=== PATIENT | female | born 1955 | race Asian ===

== ENCOUNTER 2016-12-18 15:38 | Emergency (ER) | payer MEDICAID, OTHER ==
[~2016-12-18] VITALS: Ht 152.4 cm; Wt 52.2 kg
[2016-12-18 16:05] VITALS: BP 157/94
--- NOTE | 2016-12-18 16:22 | PHYS DOC ---
Past Medical History Past Medical History: No Pertinent History Past Surgical History: No Surgical History Alcohol Use: None Drug Use: None Adult General Chief Complaint Chief Complaint: SKIN RASH/ABSCESS HPI HPI Patient is a 61 year old female who presents today with a pruritic rash that began 3 days ago. Patient denies any known cause of the rash. Review of Systems Review of Systems Constitutional: Denies fever or chills [] Eyes: Denies change in visual acuity, redness, or eye pain [] HENT: Denies nasal congestion or sore throat [] Musculoskeletal: Denies back pain or joint pain [] Integument: rash Neurologic: Denies headache, focal weakness or sensory changes [] Endocrine: Denies polyuria or polydipsia [] Allergies Allergies Allergies Coded Allergies Type Severity Reaction Last Updated Verified No Known Drug Allergies 12/18/16 No Physical Exam Physical Exam Constitutional: Well developed, well nourished, no acute distress, non-toxic appearance. [] HENT: Normocephalic, atraumatic, bilateral external ears normal, oropharynx moist, no oral exudates, nose normal. [] Skin: Patient has scattered areas of mild erythematous macular rash on her face right buttock and exterior vaginal area. Back: No tenderness, no CVA tenderness. [] Extremities: No tenderness, no cyanosis, no clubbing, ROM intact, no edema. [] Neurologic: Alert and oriented X 3, normal motor function, normal sensory function, no focal deficits noted. [] Psychologic: Affect normal, judgement normal, mood normal. [] Current Patient Data Vital Signs Vital Signs Date Time Temp Pulse Resp B/P (MAP) Pulse Ox O2 Delivery O2 Flow Rate FiO2 12/18/16 16:05 97.7 74 16 100 Room Air 97.7 EKG EKG [] Radiology/Procedures Radiology/Procedures [] Course & Med Decision Making Course & Med Decision Making Pertinent Labs and Imaging studies reviewed. (See chart for details) Patient has contact dermatitis rash from unknown cause, the rash is on her face buttocks and vaginal area. Given a prescription for triamcinolone cream, Atarax , and prednisone. F/u with helminthologist which we provided. Kevyn Disclaimer Kevyn Disclaimer This electronic medical record was generated, in whole or in part, using a voice recognition dictation system. Departure Departure Impression: Primary Impression: Contact dermatitis Disposition: 01 HOME, SELF-CARE Condition: STABLE Referrals: AYLA AVILA (PCP) follow up in 2 weeks RICHARD SANCHEZ MD follow up in 2 weeks Patient Instructions: Contact Dermatitis, [id number] Additional Instructions: You were seen for contact dermatitis rash from unknown cause. Use the medication provided as prescribed. Follow-up with the helminthologist with the provided helminthologist in 2 weeks. Scripts Hydroxyzine Hcl (HYDROXYZINE HCL) 25 Mg Tablet 1 TAB PO TID, #30 TAB Prov: AN GONZALES APRN 12/18/16 Prednisone (PREDNISONE) 10 Mg Tablet 10 MG PO UD for PREDNISONE TAPER, #39 TAB 0 Refills Take 3 tablets by mouth twice a day for 3 days, then take 2 tablets by mouth twice a day for 3 days, then take 1 tablet by mouth twice a day for 3 days, then take 1 tablet by mouth daily x 3 days, then stop. Prov: AN GONZALES APRN 12/18/16 Triamcinolone Acetonide (TRIAMCINOLONE ACETONIDE 0.1% OINT) 15 Gm Oint...g. 1 RAND TP BID for WOUND CARE, #1 TUBE Prov: AN GONZALES APRN 12/18/16 Problem Qualifiers Primary Impression: Contact dermatitis Contact dermatitis type: unspecified Contact dermatitis trigger: unspecified trigger Qualified Codes: L25.9 - Unspecified contact dermatitis, unspecified cause AN GONZALES APRN Dec 18, 2016 16:22
[2016-12-18] MEDS ORDERED: TRIA15OI TP (16:26)
[2016-12-18] MEDS ORDERED: HYDR25TA PO (16:26)
[2016-12-18] MEDS ORDERED: PRED-220 PO (16:26)
== END 2016-12-18 16:57 | disposition home or self-care (01) ==
LOC: ER 15:38
DX: L25.9 Unspecified contact dermatitis, unspecified cause (principal)
CPT/HCPCS: 99283

== ENCOUNTER 2017-01-29 16:36 | Observation (INO) | payer OTHER ==
[~2017-01-29] VITALS: Ht 144.8 cm; Wt 42.2 kg
[~2017-01-29 16:36] MED LIST: HYDR25TA PO; PRED-220 PO; TRIA15OI TP
[2017-01-29] MEDS ORDERED: MECLIZINE HCL 12.5 MG TABLET. PO ONE (17:00)
[2017-01-29] MEDS ORDERED: IV NORMAL SALINE 500ML BAG 500 ML IV ONE (17:00)
[2017-01-29 17:13] LABS: BASO # 0.1 x10^3/uL (0.0-0.2); BASO % 1 % (0-3); EOS % 1 % (0-3); HEMOGLOBIN 15.2 g/dL (12.0-15.5); LYMPH # 2.4 x10^3/uL (1.0-4.8); LYMPH % 22 % (24-48); MEAN CORPUSCULAR HEMOGLOBIN 29 pg (25-35); MEAN CORPUSCULAR HGB CONC 34 g/dL (31-37); MEAN CORPUSCULAR VOLUME 85 fL (79-100); MONO % 5 % (0-9); NEUT % 72 % (31-73); PLATELET COUNT 262 x10^3/uL (140-400); RED BLOOD COUNT 5.31 x10^6/uL (3.50-5.40); RED CELL DISTRIBUTION WIDTH 12.7 % (11.5-14.5)
[2017-01-29 17:36] LABS: CALCIUM 9.6 mg/dL (8.5-10.1); CREATININE 0.8 mg/dL (0.6-1.0); GFR 73.2; MAGNESIUM 2.2 mg/dL (1.8-2.4); TOTAL BILIRUBIN 0.3 mg/dL (0.2-1.0)
--- NOTE | 2017-01-29 17:39 | RAD ---
EXAM: Head CT without contrast. HISTORY: Dizziness and vomiting. TECHNIQUE: Computed tomographic images of the head were obtained without contrast. *One or more of the following individualized dose reduction techniques were utilized for this examination: 1. Automated exposure control. 2. Adjustment of the mA and/or kV according to patient size. 3. Use of iterative reconstruction technique. COMPARISON: None. FINDINGS: There is no acute or subacute extra-axial or intraparenchymal hemorrhage. There is no mass effect or midline shift. There is no hydrocephalus. There are areas of decreased attenuation within the cerebral white matter, nonspecific and likely related to chronic small vessel disease. There is punctate calcification within the bilateral basal ganglia. There is a right maxillary sinus mucous retention cyst and mild right ethmoid sinus mucosal thickening. The orbits and mastoid air cells are unremarkable. No calvarial lesion is seen. IMPRESSION: No acute intracranial findings. Electronically signed by: Julisa Walsh MD (01/29/2017 5:35 PM) [facility]
--- NOTE | 2017-01-29 17:39 | EKG ---
[facility] [address] [place] [address] Test Date: 2017-01-29 Test Time: 16:57:57 Pat Name: KELLI MUÑOZ Department: Room: Gender: F Mingler Operator: : [id number] Requested By: RUTHIE HU Order Number: [id number] Reading MD: José Miguel Mansfield Measurements Intervals [place] Rate: 88 P: 29 WV: 150 QRS: 35 QRSD: 70 T: 36 QT: 350 QTc: 427 Interpretive Statements SINUS RHYTHM Electronically Signed On 01-30-2017 9:32:00 CDT by José Miguel Mansfield
[2017-01-29 18:09] LABS: BILIRUBIN,URINE NEGATIVE (NEG); GLUCOSE,URINE NEGATIVE (NEG); NITRITE,URINE NEGATIVE (NEG); PROTEIN,URINE NEGATIVE (NEG-TRACE); UROBILINOGEN,URINE 0.2 mg/dL (0.2 mg/dL)
[2017-01-29 18:19] LABS: BACTERIA,URINE 0 /HPF (0-FEW); RBC,URINE 0 /HPF (0-2)
[2017-01-29 18:20] LABS: SQUAMOUS EPITHELIAL CELL,UR OCC /LPF
[2017-01-29] MEDS ORDERED: POTASSIUM CHLORIDE 20 MEQ TABLET.ER. PO ONE (18:30)
[2017-01-29] MEDS ORDERED: IV NORMAL SALINE 1000ML BAG 1,000 ML IV ONE (19:30)
--- NOTE | 2017-01-29 19:38 | PHYS DOC ---
Past Medical History Past Medical History: Diabetes-Type II, Hypertension Past Surgical History: Other Additional Past Surgical Histo: LEFT HAND Alcohol Use: None Drug Use: None Adult General Chief Complaint Chief Complaint: DIZZY, NAUSEA/VOMITING HPI HPI Patient is a 61 year old FEMALE who presents with nausea and vomiting today with dizziness. Dizziness feels like her "head is going to inflate" and she is nausea. Pt reports symptoms started this morning and have been persistent thoughout the day. Denies associated chest pain or abdominal pain. Denies urinary symptoms, no diarrhea. Pt denies fevers, cough or runny nose. Denies focal weakness, no prior similar symptoms. Pt has recently been prescribed gabapentin and family reports that her dizziness occurs after she takes this medication. Exam interpreted by family member. Review of Systems Review of Systems Constitutional: Denies fever or chills [] Eyes: Denies change in visual acuity, redness, or eye pain [] HENT: Denies nasal congestion or sore throat [] Respiratory: Denies cough or shortness of breath [] Cardiovascular: denies chest pain GI: per hpi : Denies dysuria or hematuria [] Musculoskeletal: Denies back pain, reports left chronic wrist pain and R leg pain Integument: Denies rash or skin lesions [] Neurologic: Denies headache, focal weakness or sensory changes [] Current Medications Current Medications Current Medications Medications (Trade) Dose Ordered Sig/Matias Start Time Stop Time Status Last Admin Dose Admin Meclizine HCl (Antivert) 25 mg 1X ONCE 01/29/17 17:00 01/29/17 17:01 DC 01/29/17 17:18 25 MG Potassium Chloride (Klor-Con) 40 meq 1X ONCE 01/29/17 18:30 01/29/17 18:31 DC 01/29/17 18:30 40 MEQ Sodium Chloride 500 ml @ 500 mls/hr 1X ONCE 01/29/17 17:00 01/29/17 17:59 DC 01/29/17 17:18 500 MLS/HR Allergies Allergies Allergies Coded Allergies Type Severity Reaction Last Updated Verified No Known Drug Allergies 12/18/16 No Physical Exam Physical Exam Constitutional: Well developed, well nourished, appears to not feel well. Laying with eyes closed HENT: Normocephalic, atraumatic, bilateral external ears normal, oropharynx moist, no oral exudates, nose normal. [] Eyes: PERRLA, EOMI, conjunctiva normal, no discharge. [] Neck: Normal range of motion, no tenderness, supple, no stridor. [] Cardiovascular:Heart rate regular with regular rhythm, no murmur [] Lungs & Thorax: Bilateral breath sounds clear to auscultation , no wheeze or crackles Abdomen: soft, no tenderness, no masses, no pulsatile masses. [] Skin: Warm, dry, no erythema, no rash. [] Back: No tenderness, no CVA tenderness. [] Extremities: left wrist ttp where pt previously had surgery. Neurologic: Alert and oriented X 3, normal motor function, normal sensory function, no focal deficits noted. CN II-XII intact Current Patient Data Vital Signs Vital Signs Date Time Temp Pulse Resp B/P (MAP) Pulse Ox O2 Delivery O2 Flow Rate FiO2 01/29/17 18:35 73 20 115/66 (82) 98 Room Air 01/29/17 16:47 97.4 97.4 Lab Values Laboratory Tests Test 01/29/17 16:49 01/29/17 17:00 01/29/17 17:55 Glucose (Fingerstick) 118 mg/dL (70-99) H White Blood Count 11.0 x10^3/uL (4.0-11.0) Red Blood Count 5.31 x10^6/uL (3.50-5.40) Hemoglobin 15.2 g/dL (12.0-15.5) Hematocrit 45.0 % (36.0-47.0) Mean Corpuscular Volume 85 fL (79-100) Mean Corpuscular Hemoglobin 29 pg (25-35) Mean Corpuscular Hemoglobin Concent 34 g/dL (31-37) Red Cell Distribution Width 12.7 % (11.5-14.5) Platelet Count 262 x10^3/uL (140-400) Neutrophils (%) (Auto) 72 % (31-73) Lymphocytes (%) (Auto) 22 % (24-48) L Monocytes (%) (Auto) 5 % (0-9) Eosinophils (%) (Auto) 1 % (0-3) Basophils (%) (Auto) 1 % (0-3) Neutrophils # (Auto) 7.9 x10^3uL (1.8-7.7) H Lymphocytes # (Auto) 2.4 x10^3/uL (1.0-4.8) Monocytes # (Auto) 0.5 x10^3/uL (0.0-1.1) Eosinophils # (Auto) 0.1 x10^3/uL (0.0-0.7) Basophils # (Auto) 0.1 x10^3/uL (0.0-0.2) Sodium Level 141 mmol/L (136-145) Potassium Level 3.0 mmol/L (3.5-5.1) L Chloride Level 102 mmol/L (98-107) Carbon Dioxide Level 32 mmol/L (21-32) Anion Gap 7 (6-14) Blood Urea Nitrogen 14 mg/dL (7-20) Creatinine 0.8 mg/dL (0.6-1.0) Estimated GFR (Cockcroft-Gault) 73.2 BUN/Creatinine Ratio 18 (6-20) Glucose Level 115 mg/dL (70-99) H Calcium Level 9.6 mg/dL (8.5-10.1) Magnesium Level 2.2 mg/dL (1.8-2.4) Total Bilirubin 0.3 mg/dL (0.2-1.0) Aspartate Amino Transferase (AST) 20 U/L (15-37) Alanine Aminotransferase (ALT) 36 U/L (14-59) Alkaline Phosphatase 107 U/L (46-116) Troponin I Quantitative < 0.017 ng/mL (0.000-0.055) Total Protein 8.0 g/dL (6.4-8.2) Albumin 4.0 g/dL (3.4-5.0) Albumin/Globulin Ratio 1.0 (1.0-1.7) Urine Color Yellow Urine Clarity Clear Urine pH 7.0 Urine Specific [place] 1.020 Urine Protein Negative mg/dL (NEG-TRACE) Urine Glucose (UA) Negative mg/dL (NEG) Urine Ketones (Stick) Negative mg/dL (NEG) Urine Blood Negative (NEG) Urine Nitrite Negative (NEG) Urine Bilirubin Negative (NEG) Urine Urobilinogen Dipstick 0.2 mg/dL (0.2 mg/dL) Urine Leukocyte Esterase Negative (NEG) Urine RBC 0 /HPF (0-2) Urine WBC 1-4 /HPF (0-4) Urine Squamous Epithelial Cells Occ /LPF Urine Bacteria 0 /HPF (0-FEW) Urine Mucus Mod /LPF Laboratory Tests 01/29/17 17:00 Laboratory Tests 01/29/17 17:00 EKG EKG 80 bpm, sinus, normal axis, normal intervals, no ST elevation or depression, nonischemic T waves, interpreted by me [] Radiology/Procedures Radiology/Procedures CT head: IMPRESSION: No acute intracranial findings. Course & Med Decision Making Course & Med Decision Making Pertinent Labs and Imaging studies reviewed. (See chart for details) She was given an IV fluids, meclizine, Zofran. Patient only feels slight improvement, still feeling dizzy. She also had low potassium and 40 mEq potassium chloride given. Due to patient's ongoing symptoms and unknown cause, we will admit for observation. Dr. Rachel accepted this patient to telemetry. Dragon Disclaimer Dragon Disclaimer This electronic medical record was generated, in whole or in part, using a voice recognition dictation system. Departure Departure Impression: Primary Impression: Dizziness Additional Impressions: Nausea & vomiting Hypokalemia Disposition: ADMITTED INPATIENT Admitting Physician: Lawrence Rachel Condition: STABLE Referrals: AYLA AVILA (PCP) Problem Qualifiers RUTHIE HU MD Jan 29, 2017 19:38
[2017-01-29 20:35] VITALS: BP 119/69
[2017-01-29 23:05] VITALS: BP 109/74
--- NOTE | 2017-01-29 23:17 | HP ---
ADMIT DATE: 01/29/2017 CHIEF COMPLAINT: Headache, dizziness, nausea and leg pain. HISTORY OF PRESENT ILLNESS: The patient is a pleasant 61-year-old female from [facility]. She does not speak much Czech, but her daughters do; they are here to translate. Basically, she has got vague multiple complaints. She is kind of dizzy. She has got a little bit of a headache. She is nauseated. There is some concern she was not tolerating her medicines. I did review her medicines with her family. It turns out she has been taking double doses of her Neurontin and her Glucophage. We are going to admit the patient and observe her overnight. PAST MEDICAL HISTORY: Diabetes, hypertension and anxiety. ALLERGIES: None. FAMILY HISTORY: Diabetes. SOCIAL HISTORY: She is from [facility]. She does not drink, smoke or take drugs. MEDICATIONS: Reviewed. REVIEW OF SYSTEMS: GENERAL: No history of weight change, weakness or fevers. SKIN: No bruising, hair changes or rashes. EYES: No blurred, double or loss of vision. NOSE AND THROAT: No history of nosebleeds, hoarseness or sore throat. HEART: No history of palpitations, chest pain or shortness of breath on exertion. LUNGS: Denies cough, hemoptysis, wheezing or shortness of breath. GASTROINTESTINAL: Denies changes in appetite, vomiting, diarrhea or constipation. She complains of nausea. GENITOURINARY: No history of frequency, urgency, hesitancy or nocturia. NEUROLOGIC: Denies history of numbness, tingling, tremor or weakness. She complains of dizziness and a headache. PSYCHIATRIC: No history of panic, anxiety or depression. ENDOCRINE: No history of heat or cold intolerance, polyuria or polydipsia. EXTREMITIES: Denies muscle weakness, joint pain, pain on walking or stiffness. She complains of right leg pain. PHYSICAL EXAMINATION: VITAL SIGNS: Temperature afebrile, pulse of 64, respirations 20 and blood pressure 134/91. GENERAL: She is alert, cooperative and anxious. Her daughters are present. HEART: Normal S1, S2. LUNGS: Clear. ABDOMEN: Soft. Positive bowel sounds. EXTREMITIES: No edema. SKIN: No rashes. PSYCHIATRIC: She is anxious. VASCULAR: Good capillary refill. ENDOCRINE: No thyromegaly. LYMPHATICS: No cervical nodes. HEMATOPOIETIC: No bruising. ASSESSMENT AND PLAN: Subjective mild headache and some nausea and dizziness. 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 We are going to observe her overnight. She did actually take too much of her home meds. Perhaps she has got some toxicity from her gabapentin and Neurontin. We will try to resume her home meds tomorrow at a lower dose. PT, OT, recheck her labs, Accu-Cheks. VLADISLAV GARCIA DO DR: LESLI/mray JOB#: [id number] / [id number]
[2017-01-29] MEDS ORDERED: GABA-586 PO (23:20)
[2017-01-29] MEDS ORDERED: HYDR25TA9 PO (23:20)
[2017-01-29] MEDS ORDERED: METF500T4 PO (23:20)
--- NOTE | 2017-01-29 23:28 | ACF ---
Admission Forms Criteria DIZZINESS Clinical Indications for Admission to Inpatient Care ([facility] [facility]/check or initial the applicable condition/criteria) Admission is indicated for 1 or more of the following (1)(2)(3)(4)(5)(6) [ ]I. Acute bacterial labyrinthitis [ ]II. Cerebellar, brainstem, or cerebral ischemia or hemorrhage(7)(8) [ ]III. A suspected etiology that requires admission for treatment(9) [X]IV. Inpatient admission required rather than observation care (Also use Dizziness: Observation Care as appropriate)because of ANY ONE of the following: (10)(11)(12)(13)(14) [ ]a) Hemodynamic instability [X]b) Signs or symptoms that are severe or persistent (e.g., inability to ambulate after observation care treatment [ ]c) Vomiting that is severe or persistent [ ]d) Cardiac arrhythmias of immediate concern [ ]e) Severe (new) neurologic findings requiring inpatient care as indicated by 1 or more of the following(10)(11) [ ]i) Papilledema [ ]ii) Cerebral edema [ ]iii) Mass effect on CT scan [ ]iv) Cerebral bleeding, ischemia or vasospasm (15) [ ]v) Increased intracranial pressure or hydrocephalus(12) (13) [ ]f) Continuous IV infusion of anticoagulation, platelet inhibitor, vasoactive, or antiarrhythmic medication [ ]g) Cerebral bleeding, hydrocephalus, or vasospasm monitoring(16) [ ]h) Increased intracranial pressure or cerebral edema monitoring [ ]i) Other condition, treatment or monitoring requiring inpatient admission Extended stay beyond goal length of stay may be needed for evaluating and treating a specific cause of dizziness, including:(1) (35) [ ]a) Cardiac arrhythmias or conduction defects [ ]b) Myocardial ischemia [ ]c) New-onset vertebrobasilar vascular insufficiency (31) [ ]d) Acute neurologic event causing dizziness [ ]e) Head injury (36) [ ]f) Acute bacterial labyrinthitis (33) [ ]g) Severe acute vestibular neuronitis (19) [ ]h) Acute Meniere disease with intractable symptoms The original [facility] content created by Marce Gomes has been revised. The portions of the content which have been revised are identified through the use of italic text, and Marce Gomes has neither reviewed nor approved the modified material. All other unmodified content is copyright [facility]. Please see references footnoted in the original [facility] edition 2015 Admission Criteria Met?: Yes DAE WATSON Jan 29, 2017 23:28
[2017-01-30 02:53] VITALS: BP 114/74
[2017-01-30 07:00] VITALS: BP 134/82
[2017-01-30] MEDS ORDERED: MAGNESIUM SULFATE 2GM 50 ML IV ONE (09:45)
[2017-01-30] MEDS ORDERED: POTASSIUM CHLORIDE 20 MEQ TABLET.ER. PO ONE (10:00)
[2017-01-30] MEDS ORDERED: GABAPENTIN 300 MG CAPSULE. PO SCH (10:00)
[2017-01-30] MEDS ORDERED: hydroCHLOROthiazide 25 MG TABLET PO SCH (10:00)
[2017-01-30] MEDS ORDERED: metFORMIN 500 MG TABLET PO SCH (10:00)
[2017-01-30 11:00] VITALS: BP 133/82
--- NOTE | 2017-01-30 11:15 | PDOC ---
PROGRESS NOTES Chief Complaint Chief Complaint mild headache and some nausea and dizziness. viral syndrome she reports she needs her neurontin for chronic LE pain resume DM2 meds History of Present Illness History of Present Illness DC Vitals Vitals Vital Signs Date Time Temp Pulse Resp B/P (MAP) Pulse Ox O2 Delivery O2 Flow Rate FiO2 01/30/17 11:00 97.8 76 18 133/82 (99) 100 Room Air 97.8 Physical Exam General: Alert, Cooperative, No acute distress Heart: Normal S1, Normal S2 Labs LABS Laboratory Tests Test 01/29/17 16:49 01/29/17 17:00 01/29/17 17:55 01/29/17 21:29 Glucose (Fingerstick) 118 mg/dL (70-99) 126 mg/dL (70-99) White Blood Count 11.0 x10^3/uL (4.0-11.0) Red Blood Count 5.31 x10^6/uL (3.50-5.40) Hemoglobin 15.2 g/dL (12.0-15.5) Hematocrit 45.0 % (36.0-47.0) Mean Corpuscular Volume 85 fL (79-100) Mean Corpuscular Hemoglobin 29 pg (25-35) Mean Corpuscular Hemoglobin Concent 34 g/dL (31-37) Red Cell Distribution Width 12.7 % (11.5-14.5) Platelet Count 262 x10^3/uL (140-400) Neutrophils (%) (Auto) 72 % (31-73) Lymphocytes (%) (Auto) 22 % (24-48) Monocytes (%) (Auto) 5 % (0-9) Eosinophils (%) (Auto) 1 % (0-3) Basophils (%) (Auto) 1 % (0-3) Neutrophils # (Auto) 7.9 x10^3uL (1.8-7.7) Lymphocytes # (Auto) 2.4 x10^3/uL (1.0-4.8) Monocytes # (Auto) 0.5 x10^3/uL (0.0-1.1) Eosinophils # (Auto) 0.1 x10^3/uL (0.0-0.7) Basophils # (Auto) 0.1 x10^3/uL (0.0-0.2) Sodium Level 141 mmol/L (136-145) Potassium Level 3.0 mmol/L (3.5-5.1) Chloride Level 102 mmol/L (98-107) Carbon Dioxide Level 32 mmol/L (21-32) Anion Gap 7 (6-14) Blood Urea Nitrogen 14 mg/dL (7-20) Creatinine 0.8 mg/dL (0.6-1.0) Estimated GFR (Cockcroft-Gault) 73.2 BUN/Creatinine Ratio 18 (6-20) Glucose Level 115 mg/dL (70-99) Calcium Level 9.6 mg/dL (8.5-10.1) Magnesium Level 2.2 mg/dL (1.8-2.4) Total Bilirubin 0.3 mg/dL (0.2-1.0) Aspartate Amino Transf (AST/SGOT) 20 U/L (15-37) Alanine Aminotransferase (ALT/SGPT) 36 U/L (14-59) Alkaline Phosphatase 107 U/L (46-116) Troponin I Quantitative < 0.017 ng/mL (0.000-0.055) Total Protein 8.0 g/dL (6.4-8.2) Albumin 4.0 g/dL (3.4-5.0) Albumin/Globulin Ratio 1.0 (1.0-1.7) Urine Color Yellow Urine Clarity Clear Urine pH 7.0 Urine Specific [place] 1.020 Urine Protein Negative mg/dL (NEG-TRACE) Urine Glucose (UA) Negative mg/dL (NEG) Urine Ketones (Stick) Negative mg/dL (NEG) Urine Blood Negative (NEG) Urine Nitrite Negative (NEG) Urine Bilirubin Negative (NEG) Urine Urobilinogen Dipstick 0.2 mg/dL (0.2 mg/dL) Urine Leukocyte Esterase Negative (NEG) Urine RBC 0 /HPF (0-2) Urine WBC 1-4 /HPF (0-4) Urine Squamous Epithelial Cells Occ /LPF Urine Bacteria 0 /HPF (0-FEW) Urine Mucus Mod /LPF Test 01/30/17 01:53 Troponin I Quantitative < 0.017 ng/mL (0.000-0.055) Review of Systems Review of Systems feels at baseline, but looks lethargic Assessment and Plan Assessmemt and Plan Problems Medical Problems: (1) Dizziness Status: Acute (2) Hypokalemia Status: Acute (3) Nausea & vomiting Status: Acute Problems: Comment Review of Relevant I have reviewed the following items nina (where applicable) has been applied. Labs Laboratory Tests Test 01/29/17 16:49 01/29/17 17:00 01/29/17 17:55 01/29/17 21:29 Glucose (Fingerstick) 118 mg/dL (70-99) 126 mg/dL (70-99) White Blood Count 11.0 x10^3/uL (4.0-11.0) Red Blood Count 5.31 x10^6/uL (3.50-5.40) Hemoglobin 15.2 g/dL (12.0-15.5) Hematocrit 45.0 % (36.0-47.0) Mean Corpuscular Volume 85 fL (79-100) Mean Corpuscular Hemoglobin 29 pg (25-35) Mean Corpuscular Hemoglobin Concent 34 g/dL (31-37) Red Cell Distribution Width 12.7 % (11.5-14.5) Platelet Count 262 x10^3/uL (140-400) Neutrophils (%) (Auto) 72 % (31-73) Lymphocytes (%) (Auto) 22 % (24-48) Monocytes (%) (Auto) 5 % (0-9) Eosinophils (%) (Auto) 1 % (0-3) Basophils (%) (Auto) 1 % (0-3) Neutrophils # (Auto) 7.9 x10^3uL (1.8-7.7) Lymphocytes # (Auto) 2.4 x10^3/uL (1.0-4.8) Monocytes # (Auto) 0.5 x10^3/uL (0.0-1.1) Eosinophils # (Auto) 0.1 x10^3/uL (0.0-0.7) Basophils # (Auto) 0.1 x10^3/uL (0.0-0.2) Sodium Level 141 mmol/L (136-145) Potassium Level 3.0 mmol/L (3.5-5.1) Chloride Level 102 mmol/L (98-107) Carbon Dioxide Level 32 mmol/L (21-32) Anion Gap 7 (6-14) Blood Urea Nitrogen 14 mg/dL (7-20) Creatinine 0.8 mg/dL (0.6-1.0) Estimated GFR (Cockcroft-Gault) 73.2 BUN/Creatinine Ratio 18 (6-20) Glucose Level 115 mg/dL (70-99) Calcium Level 9.6 mg/dL (8.5-10.1) Magnesium Level 2.2 mg/dL (1.8-2.4) Total Bilirubin 0.3 mg/dL (0.2-1.0) Aspartate Amino Transf (AST/SGOT) 20 U/L (15-37) Alanine Aminotransferase (ALT/SGPT) 36 U/L (14-59) Alkaline Phosphatase 107 U/L (46-116) Troponin I Quantitative < 0.017 ng/mL (0.000-0.055) Total Protein 8.0 g/dL (6.4-8.2) Albumin 4.0 g/dL (3.4-5.0) Albumin/Globulin Ratio 1.0 (1.0-1.7) Urine Color Yellow Urine Clarity Clear Urine pH 7.0 Urine Specific [place] 1.020 Urine Protein Negative mg/dL (NEG-TRACE) Urine Glucose (UA) Negative mg/dL (NEG) Urine Ketones (Stick) Negative mg/dL (NEG) Urine Blood Negative (NEG) Urine Nitrite Negative (NEG) Urine Bilirubin Negative (NEG) Urine Urobilinogen Dipstick 0.2 mg/dL (0.2 mg/dL) Urine Leukocyte Esterase Negative (NEG) Urine RBC 0 /HPF (0-2) Urine WBC 1-4 /HPF (0-4) Urine Squamous Epithelial Cells Occ /LPF Urine Bacteria 0 /HPF (0-FEW) Urine Mucus Mod /LPF Test 01/30/17 01:53 Troponin I Quantitative < 0.017 ng/mL (0.000-0.055) Laboratory Tests Test 01/29/17 16:49 01/29/17 17:00 01/29/17 17:55 01/29/17 21:29 Glucose (Fingerstick) 118 mg/dL (70-99) 126 mg/dL (70-99) White Blood Count 11.0 x10^3/uL (4.0-11.0) Red Blood Count 5.31 x10^6/uL (3.50-5.40) Hemoglobin 15.2 g/dL (12.0-15.5) Hematocrit 45.0 % (36.0-47.0) Mean Corpuscular Volume 85 fL (79-100) Mean Corpuscular Hemoglobin 29 pg (25-35) Mean Corpuscular Hemoglobin Concent 34 g/dL (31-37) Red Cell Distribution Width 12.7 % (11.5-14.5) Platelet Count 262 x10^3/uL (140-400) Neutrophils (%) (Auto) 72 % (31-73) Lymphocytes (%) (Auto) 22 % (24-48) Monocytes (%) (Auto) 5 % (0-9) Eosinophils (%) (Auto) 1 % (0-3) Basophils (%) (Auto) 1 % (0-3) Neutrophils # (Auto) 7.9 x10^3uL (1.8-7.7) Lymphocytes # (Auto) 2.4 x10^3/uL (1.0-4.8) Monocytes # (Auto) 0.5 x10^3/uL (0.0-1.1) Eosinophils # (Auto) 0.1 x10^3/uL (0.0-0.7) Basophils # (Auto) 0.1 x10^3/uL (0.0-0.2) Sodium Level 141 mmol/L (136-145) Potassium Level 3.0 mmol/L (3.5-5.1) Chloride Level 102 mmol/L (98-107) Carbon Dioxide Level 32 mmol/L (21-32) Anion Gap 7 (6-14) Blood Urea Nitrogen 14 mg/dL (7-20) Creatinine 0.8 mg/dL (0.6-1.0) Estimated GFR (Cockcroft-Gault) 73.2 BUN/Creatinine Ratio 18 (6-20) Glucose Level 115 mg/dL (70-99) Calcium Level 9.6 mg/dL (8.5-10.1) Magnesium Level 2.2 mg/dL (1.8-2.4) Total Bilirubin 0.3 mg/dL (0.2-1.0) Aspartate Amino Transf (AST/SGOT) 20 U/L (15-37) Alanine Aminotransferase (ALT/SGPT) 36 U/L (14-59) Alkaline Phosphatase 107 U/L (46-116) Troponin I Quantitative < 0.017 ng/mL (0.000-0.055) Total Protein 8.0 g/dL (6.4-8.2) Albumin 4.0 g/dL (3.4-5.0) Albumin/Globulin Ratio 1.0 (1.0-1.7) Urine Color Yellow Urine Clarity Clear Urine pH 7.0 Urine Specific [place] 1.020 Urine Protein Negative mg/dL (NEG-TRACE) Urine Glucose (UA) Negative mg/dL (NEG) Urine Ketones (Stick) Negative mg/dL (NEG) Urine Blood Negative (NEG) Urine Nitrite Negative (NEG) Urine Bilirubin Negative (NEG) Urine Urobilinogen Dipstick 0.2 mg/dL (0.2 mg/dL) Urine Leukocyte Esterase Negative (NEG) Urine RBC 0 /HPF (0-2) Urine WBC 1-4 /HPF (0-4) Urine Squamous Epithelial Cells Occ /LPF Urine Bacteria 0 /HPF (0-FEW) Urine Mucus Mod /LPF Test 01/30/17 01:53 Troponin I Quantitative < 0.017 ng/mL (0.000-0.055) Medications Current Medications Meclizine HCl (Antivert) 25 mg 1X ONCE PO Last administered on 01/29/17 17:18 ; Start 01/29/17 at 17:00; Stop 01/29/17 at 17:01; Status DC Sodium Chloride 500 ml @ 500 mls/hr 1X ONCE IV Last administered on 17:18; Start 01/29/17 at 17:00; Stop 01/29/17 at 17:59; Status DC Potassium Chloride (Klor-Con) 40 meq 1X ONCE PO Last administered on 18:30; Start 01/29/17 at 18:30; Stop 01/29/17 at 18:31; Status DC Sodium Chloride 1,000 ml @ 75 mls/hr 1X ONCE IV Last administered on 21:31; Start 01/29/17 at 19:30; Stop 01/30/17 at 08:49; Status DC Hydrochlorothiazide (Hydrodiuril) 25 mg DAILY PO ; Start 01/30/17 at 10:00 Metformin HCl (Glucophage) 500 mg DAILYWBKFT PO Last administered on 01/30/17 11:08; Start 01/30/17 at 10:00 Gabapentin (Neurontin) 300 mg BID PO ; Start 01/30/17 at 10:00 Potassium Chloride (Klor-Con) 40 meq 1X ONCE PO Last administered on t 11:04; Start 01/30/17 at 10:00; Stop 01/30/17 at 10:01; Status DC Magnesium Sulfate/ Dextrose 50 ml @ 25 mls/hr 1X ONCE IV ; Start 01/30/17 at 09 :45; Stop 01/30/17 at 11:44; Status UNV Active Scripts Active Reported Metformin Hcl 500 Mg Tablet 500 Mg PO [id number] Hydrochlorothiazide Tablet (Hydrochlorothiazide) 25 Mg Tablet 1 Tab PO DAILY Gabapentin 300 Mg Capsule 300 Mg PO BID Vitals/I & O Vital Sign - Last 24 Hours 01/29/17 01/29/17 01/29/17 01/29/17 16:42 16:47 17:12 17:35 Temp 97.4 97.4 Pulse 82 89 75 79 Resp 20 20 20 18 B/P (MAP) 129/78 (95) 129/78 (95) 134/80 (98) 140/83 (102) Pulse Ox 100 99 95 97 O2 Delivery Room Air Room Air Room Air Room Air 01/29/17 01/29/17 01/29/17 01/29/17 18:05 18:35 19:05 19:35 Pulse 70 73 82 82 Resp 19 20 18 18 B/P (MAP) 122/64 (83) 115/66 (82) 147/82 (103) 132/84 (100) Pulse Ox 98 98 97 98 O2 Delivery Room Air Room Air 01/29/17 01/29/17 01/29/17 01/29/17 20:05 20:35 20:35 23:05 Temp 98.8 98.5 98.8 98.5 Pulse 86 74 92 Resp 18 16 16 B/P (MAP) 120/75 (90) 119/69 (86) 109/74 (86) Pulse Ox 98 100 97 O2 Delivery Room Air Room Air Room Air Room Air 01/30/17 01/30/17 01/30/17 01/30/17 02:53 07:00 08:00 11:00 Temp 98.1 97.4 97.8 98.1 97.4 97.8 Pulse 74 77 76 Resp 16 18 18 B/P (MAP) 114/74 (87) 134/82 (99) 133/82 (99) Pulse Ox 97 100 100 O2 Delivery Room Air Room Air Room Air Room Air Intake and Output 01/30/17 01/30/17 01/31/17 15:00 23:00 07:00 Intake Total 250 ml Balance 250 ml ARIA FLORES MD Jan 30, 2017 11:15
--- NOTE | 2017-01-30 11:16 | PDOC3 ---
Discharge Summary Visit Information Date of Admission: Jan 29, 2017 Date of Discharge: Jan 30, 2017 Admitting Diagnosis: headahce, nausea Final Diagnosis headache and some nausea and dizziness. viral syndrome LE neuropathy DM2 History of Present Illness History of Present Illness DCProblems Medical Problems: (1) Dizziness Status: Acute (2) Hypokalemia Status: Acute (3) Nausea & vomiting Status: Acute Brief Hospital Course Allergies Allergies Coded Allergies Type Severity Reaction Last Updated Verified No Known Drug Allergies 12/18/16 No Vital Signs Vital Signs Date Time Temp Pulse Resp B/P (MAP) Pulse Ox O2 Delivery O2 Flow Rate FiO2 01/30/17 11:00 97.8 76 18 133/82 (99) 100 Room Air 97.8 Lab Results Laboratory Tests Test 01/29/17 16:49 01/29/17 17:00 01/29/17 17:55 01/29/17 21:29 Glucose (Fingerstick) 118 mg/dL (70-99) 126 mg/dL (70-99) White Blood Count 11.0 x10^3/uL (4.0-11.0) Red Blood Count 5.31 x10^6/uL (3.50-5.40) Hemoglobin 15.2 g/dL (12.0-15.5) Hematocrit 45.0 % (36.0-47.0) Mean Corpuscular Volume 85 fL (79-100) Mean Corpuscular Hemoglobin 29 pg (25-35) Mean Corpuscular Hemoglobin Concent 34 g/dL (31-37) Red Cell Distribution Width 12.7 % (11.5-14.5) Platelet Count 262 x10^3/uL (140-400) Neutrophils (%) (Auto) 72 % (31-73) Lymphocytes (%) (Auto) 22 % (24-48) Monocytes (%) (Auto) 5 % (0-9) Eosinophils (%) (Auto) 1 % (0-3) Basophils (%) (Auto) 1 % (0-3) Neutrophils # (Auto) 7.9 x10^3uL (1.8-7.7) Lymphocytes # (Auto) 2.4 x10^3/uL (1.0-4.8) Monocytes # (Auto) 0.5 x10^3/uL (0.0-1.1) Eosinophils # (Auto) 0.1 x10^3/uL (0.0-0.7) Basophils # (Auto) 0.1 x10^3/uL (0.0-0.2) Sodium Level 141 mmol/L (136-145) Potassium Level 3.0 mmol/L (3.5-5.1) Chloride Level 102 mmol/L (98-107) Carbon Dioxide Level 32 mmol/L (21-32) Anion Gap 7 (6-14) Blood Urea Nitrogen 14 mg/dL (7-20) Creatinine 0.8 mg/dL (0.6-1.0) Estimated GFR (Cockcroft-Gault) 73.2 BUN/Creatinine Ratio 18 (6-20) Glucose Level 115 mg/dL (70-99) Calcium Level 9.6 mg/dL (8.5-10.1) Magnesium Level 2.2 mg/dL (1.8-2.4) Total Bilirubin 0.3 mg/dL (0.2-1.0) Aspartate Amino Transf (AST/SGOT) 20 U/L (15-37) Alanine Aminotransferase (ALT/SGPT) 36 U/L (14-59) Alkaline Phosphatase 107 U/L (46-116) Troponin I Quantitative < 0.017 ng/mL (0.000-0.055) Total Protein 8.0 g/dL (6.4-8.2) Albumin 4.0 g/dL (3.4-5.0) Albumin/Globulin Ratio 1.0 (1.0-1.7) Urine Color Yellow Urine Clarity Clear Urine pH 7.0 Urine Specific [place] 1.020 Urine Protein Negative mg/dL (NEG-TRACE) Urine Glucose (UA) Negative mg/dL (NEG) Urine Ketones (Stick) Negative mg/dL (NEG) Urine Blood Negative (NEG) Urine Nitrite Negative (NEG) Urine Bilirubin Negative (NEG) Urine Urobilinogen Dipstick 0.2 mg/dL (0.2 mg/dL) Urine Leukocyte Esterase Negative (NEG) Urine RBC 0 /HPF (0-2) Urine WBC 1-4 /HPF (0-4) Urine Squamous Epithelial Cells Occ /LPF Urine Bacteria 0 /HPF (0-FEW) Urine Mucus Mod /LPF Test 01/30/17 01:53 Troponin I Quantitative < 0.017 ng/mL (0.000-0.055) Laboratory Tests Test 01/29/17 16:49 01/29/17 17:00 01/29/17 17:55 01/29/17 21:29 Glucose (Fingerstick) 118 mg/dL (70-99) 126 mg/dL (70-99) White Blood Count 11.0 x10^3/uL (4.0-11.0) Red Blood Count 5.31 x10^6/uL (3.50-5.40) Hemoglobin 15.2 g/dL (12.0-15.5) Hematocrit 45.0 % (36.0-47.0) Mean Corpuscular Volume 85 fL (79-100) Mean Corpuscular Hemoglobin 29 pg (25-35) Mean Corpuscular Hemoglobin Concent 34 g/dL (31-37) Red Cell Distribution Width 12.7 % (11.5-14.5) Platelet Count 262 x10^3/uL (140-400) Neutrophils (%) (Auto) 72 % (31-73) Lymphocytes (%) (Auto) 22 % (24-48) Monocytes (%) (Auto) 5 % (0-9) Eosinophils (%) (Auto) 1 % (0-3) Basophils (%) (Auto) 1 % (0-3) Neutrophils # (Auto) 7.9 x10^3uL (1.8-7.7) Lymphocytes # (Auto) 2.4 x10^3/uL (1.0-4.8) Monocytes # (Auto) 0.5 x10^3/uL (0.0-1.1) Eosinophils # (Auto) 0.1 x10^3/uL (0.0-0.7) Basophils # (Auto) 0.1 x10^3/uL (0.0-0.2) Sodium Level 141 mmol/L (136-145) Potassium Level 3.0 mmol/L (3.5-5.1) Chloride Level 102 mmol/L (98-107) Carbon Dioxide Level 32 mmol/L (21-32) Anion Gap 7 (6-14) Blood Urea Nitrogen 14 mg/dL (7-20) Creatinine 0.8 mg/dL (0.6-1.0) Estimated GFR (Cockcroft-Gault) 73.2 BUN/Creatinine Ratio 18 (6-20) Glucose Level 115 mg/dL (70-99) Calcium Level 9.6 mg/dL (8.5-10.1) Magnesium Level 2.2 mg/dL (1.8-2.4) Total Bilirubin 0.3 mg/dL (0.2-1.0) Aspartate Amino Transf (AST/SGOT) 20 U/L (15-37) Alanine Aminotransferase (ALT/SGPT) 36 U/L (14-59) Alkaline Phosphatase 107 U/L (46-116) Troponin I Quantitative < 0.017 ng/mL (0.000-0.055) Total Protein 8.0 g/dL (6.4-8.2) Albumin 4.0 g/dL (3.4-5.0) Albumin/Globulin Ratio 1.0 (1.0-1.7) Urine Color Yellow Urine Clarity Clear Urine pH 7.0 Urine Specific [place] 1.020 Urine Protein Negative mg/dL (NEG-TRACE) Urine Glucose (UA) Negative mg/dL (NEG) Urine Ketones (Stick) Negative mg/dL (NEG) Urine Blood Negative (NEG) Urine Nitrite Negative (NEG) Urine Bilirubin Negative (NEG) Urine Urobilinogen Dipstick 0.2 mg/dL (0.2 mg/dL) Urine Leukocyte Esterase Negative (NEG) Urine RBC 0 /HPF (0-2) Urine WBC 1-4 /HPF (0-4) Urine Squamous Epithelial Cells Occ /LPF Urine Bacteria 0 /HPF (0-FEW) Urine Mucus Mod /LPF Test 01/30/17 01:53 Troponin I Quantitative < 0.017 ng/mL (0.000-0.055) Brief Hospital Course Ms. eRyes is a 61 old adimt with lethargy, nausea, dizzy. She reported feeling well at DC, wanted DC home she reports she needs her neurontin for chronic LE pain, LE neuropathy resume DM2 meds Discharge Information Condition at Discharge: Improved Follow Up: Weeks Disposition/Orders: D/C to Home Scheduled Gabapentin (Gabapentin), 300 MG PO BID, (Reported) Hydrochlorothiazide (Hydrochlorothiazide Tablet ), 1 TAB PO DAILY, (Reported) Metformin Hcl (Metformin Hcl), [facility], (Reported) ARIA FLORES MD Jan 30, 2017 11:16
== END 2017-01-30 11:35 | disposition home or self-care (01) ==
LOC: ER 16:36 → 2 SOUTH 19:26
PROVIDERS: ADMIT Internal Medicine; ATTEND Internal Medicine
DX: B34.9 Viral infection, unspecified (principal); E11.40 Type 2 diabetes mellitus with diabetic neuropathy, unspecified; E87.6 Hypokalemia; G89.29 Other chronic pain; I10 Essential (primary) hypertension; F41.9 Anxiety disorder, unspecified; Z83.3 Family history of diabetes mellitus
CPT/HCPCS: 36415; 70450; 80053; 81001; 82962; 83735; 84484; 85025; 93005; 96360; 96361; 99285; G0378; J7030; J7040; J8597; G0379

== ENCOUNTER 2017-11-03 09:51 | Emergency (ER) | payer OTHER | END 2017-11-03 10:39 | disposition home or self-care (01) | LOC: ER 09:51 | DX: L25.9 Unspecified contact dermatitis, unspecified cause (principal); I10 Essential (primary) hypertension; E11.9 Type 2 diabetes mellitus without complications; G89.29 Other chronic pain | CPT/HCPCS: 99283 ==